=== PATIENT | female | born 1955 | race Caucasian/White ===

== ENCOUNTER → 2017-02-11 | Outpatient (CLI) | payer OTHER ==
[~2017-02-11] MED LIST: ESTRGEL TOP; RANI150 PO; ZOFR4TAB3 SL
--- NOTE | 2017-02-11 16:09 | RADRPT ---
EXAM DATE/TIME: 02/11/2017 14:26 [place] COMPARISON: No previous studies available for comparison. INDICATIONS : Bloating for 6 months. MEDICAL HISTORY : Family history of ovarian cancer. Fatigue. SURGICAL HISTORY : Laparoscopy. ENCOUNTER: Initial ACUITY: 4-6 months PAIN SCORE: 0/10 LOCATION: Bilateral pelvis MEASUREMENTS: UTERUS: 5.2 x 1.9 x 3.4 cm ENDOMETRIAL STRIPE: 2 mm RIGHT OVARY: cm Non visualized LEFT OVARY: 2.0 x 0.8 x 1.3 cm FINDINGS: The uterus is normal in size, and shape for the patient's age. No focal masses are identified. The en dometrial stripe is normal. There are small calcifications measuring 2 and 4 mm in the lower uterine segment which may reflect fibroids. The left ovary appears normal. The right ovary is not visualized. No adnexal masses are identified. CONCLUSION: 1. Possible fibroids lower uterine segment. No adnexal masses are identified. Konrad Hylton MD on February 11, 2017 at 15:38 Board Certified Radiologist. This report was verified electronically.
== END ==
LOC: HRAD 13:50
DX: Z80.41 Family history of malignant neoplasm of ovary (principal)
CPT/HCPCS: 76830; 76856